=== PATIENT | female | born 1960 | race Caucasian/White ===

== ENCOUNTER → 2023-07-04 14:52 | Outpatient (REF) | payer OTHER, SELFPAY | LOC: HWRAD 14:52 | PROVIDERS: ATTENDING PHYSICIAN Internal Medicine | DX: R10.30 Lower abdominal pain, unspecified (principal); R19.4 Change in bowel habit; R19.5 Other fecal abnormalities | CPT/HCPCS: 74177; Q9967 ==

== ENCOUNTER → 2023-09-15 07:44 | Outpatient (REF) | payer MEDICARE, OTHER, SELFPAY ==
[2023-09-15 10:22] LABS: ALT (SGPT) 15 U/L (0-35); AST (SGOT) 24 U/L (14-36); Blood Urea Nitrogen 15 mg/dl (7-17); Calcium 9.8 mg/dl (8.4-10.2); Carbon Dioxide 29 mmol/L (22-30); Chloride 101 mmol/L (98-107); Glucose 104 mg/dl (70-99); HDL Cholesterol 62 mg/dl; LDL Cholesterol, Calculated 135 mg/dl; Potassium 4.5 mmol/L (3.5-5.1); Sodium 138 mmol/L (135-145); Total Cholesterol 224 mg/dl (50-199); Triglyceride 136 mg/dl (10-149); Very Low Density Lipoprotein 27 mg/dl (0-30); eGFR > 60.00
[2023-09-15 10:40] LABS: Free T3 3.11 pg/ml (2.77-5.27); Free T4 1.21 ng/dl (0.78-2.19)
[2023-09-15 10:54] LABS: TSH 1.54 uIU/ml (0.47-4.68)
[2023-09-15 11:59] LABS: Glycohemoglobin (HgbA1c) 5.6 % (4.0-5.6)
== END ==
LOC: HWLAB 07:44
PROVIDERS: ATTENDING PHYSICIAN Internal Medicine
DX: R73.01 Impaired fasting glucose (principal); I10 Essential (primary) hypertension; E78.5 Hyperlipidemia, unspecified; E03.9 Hypothyroidism, unspecified
CPT/HCPCS: 36415; 80048; 80061; 83036; 84439; 84443; 84450; 84460; 84481

== ENCOUNTER 2023-11-14 13:54 | Observation (INO) | payer MEDICARE, OTHER, SELFPAY ==
[2023-11-14] VITALS (11 sets, daily range): BP systolic 128–165; BP diastolic 84–96; BMI 26.9; BMI 25.1
--- NOTE | 2023-11-14 12:25 | CON.NEURO4 ---
Addendum entered and electronically signed by Edmundo Tilley MD 11/14/23 15:46:
Studies reviewed.
I have personally examined the patient. I reviewed and agree with the PIERCER's Note.
My addenda:
Awake, alert, interactive. No acute distress.
Speech intact.
Follows 2-step requests w/o difficulty. No tremor. Frequent repetition of factual statements
Extra-ocular movements grossly intact.
Facial movements full and symmetric. Hearing intact to normal conversational volume.
Normal UE movements bilaterally.
Neck: full ROM.
Chest: no dyspnea
Heart: no JVD
Ext: (-) Clubbing, (-) Cyanosis, (-) Edema
IMPRESSIONS/RECOMMENDATIONS:
Abrupt onset of amnesia following intercourse
Most likely the patient has experienced transient global amnesia
With a history of migraine and/or depression there is a 12% likelihood of recurrence
Check MRI of brain without contrast to ensure absence of intracranial abnormality producing symptomatology
Check blood work for metabolic abnormalities producing symptoms
No indication this time patient would benefit from aspirin or other antiplatelet therapies
Continue Ezetimibe
D/W patient / nursing
All questions answered.
Will continue to follow pending results.
Original Note:
Documented by User: Mari Queen NP 11/14/23 13:06
Consultation - Neurology 4
-
CONSULTING PHYSICIAN: Edmundo Tilley MD
REFERRING PHYSICIAN: ER/Juan Jose Quintero PA-C
DICTATED BY: MAYRA Gomez
DATE/TIME OF REQUEST: 11/14/23
DATE/TIME OF CONSULTATION: 11/14/23
Reason for Consultation: Confusion
History of Present Illness:
This is a 63-year-old right-handed female who has presented to the hospital as a stroke alert with report of confusion. Patient's reports that the patient was at her baseline this morning. Around 1100 she suddenly became confused, anxious,
and was asking repetitive questions. CT head was obtained on arrival and is negative for any acute abnormalities. Patient denies any headache, dizziness, vision changes, speech/swallow difficulty, numbness, weakness, chest pain, palpitations, and
shortness of breath. She denies any recent illness, travel, and life stressors. She is notably asking the same questions on repeat. NIHSS is 1 for inability to state the month correctly. She is not a candidate for TNK/IAT due to low NIHSS and low
concern for stroke. She has no history of TIA or stroke and she is not taking any blood-thinning medications.
Past Medical History: HTN, HLD, migraines, hypothyroidism, osteopenia, GERD, depression/anxiety, chronic constipation, colitis, lumbar DJD
Surgical History: b/l RTC repair, R shoulder replacement, b/l cataract removal, lumbar spine surgery
Family History: Brother- [employer].
Social History: Occasional alcohol. Denies tobacco and illicit drug use.
Allergies: Codeine.
Home Medications: See below.
Review of Symptoms:
Patient denies any fever, headache, chest pain, shortness of breath, GI or symptoms.
�Per the HPI.�All systems are reviewed negative except above.
Physical Exam:
The patient is afebrile, abdomen is nondistended, breathing is unlabored, skin is warm and dry, no edema.
NIH Stroke Scale:
I performed the NIH stroke scale on the patient on 11/14/23 at 1230. The patient scored 1 points on the NIH stroke scale assessment, which were assigned as follows: See below.
Neurologic Examination:
The patient is awake, alert and oriented to person, place, and year not month. Asking repetitive questions about recent events. Able to state the names of her children and and her home address. She is able to follow commands and answer
questions appropriately. There is no aphasia or dysarthria. On cranial nerve assessment, pupils are 3 mm bilateral, round and reactive to light and accommodation. Visual [place] are full. Extraocular movements are intact. Facial sensations are intact
and bilaterally symmetrical, there is no facial asymmetry. Hearing is intact bilaterally to normal conversation volume. Tongue palate and uvula are midline. Sternocleidomastoid strengths are full bilaterally. Motor strengths are 5/5 bilateral upper
and lower extremities on medical research [place] scale. There is no drift or involuntary movement noted. Deep tendon reflexes are 2+ bilateral upper and lower extremities and Babinski is absent bilaterally. There was no extinction noted on double
simultaneous stimulation. Coordination is intact by finger to nose bilaterally.
Lab Results: See below.
Neuro Imaging:
1. CT Head 11/14/23: No acute intracranial abnormality. Aspects score: 10.
Differentials for the patient's presentation include:
1. Transient global amnesia likely producing patient's confusion.
2. Low concern for stroke but possible.
3. Infectious or metabolic disturbance possibly producing confusion.
4. Unlikely to be migraine aura producing symptoms given absence of headache.
Patient has the following risk factors for their symptoms: HTN, HLD, anxiety, migraines
IV Tenecteplase/IAT candidacy: She is not a candidate for TNK/IAT due to low NIHSS and low concern for stroke.
Recommendations:
-MRI brain noncontrast pending.
-Goal normotension.
-Checking blood work for metabolic disturbances.
-NIHSS and neurological checks per unit guidelines.
-DVT prophylaxis.
-Will follow pending results.
Discussed patient care with: Dr. Tilley, the patient
Vital Signs and Labs
-
Vital Signs and Labs:
Vital Signs
Temp Pulse Resp BP Pulse Ox
98.1 F 89 14 150/94 98
11/14/23 12:21 11/14/23 12:47 11/14/23 12:47 11/14/23 12:32 11/14/23 12:47
Lab Results
11/14/23 12:29
11/14/23 12:29
PT 13.3 Sec (11.4-14.6) 11/14/23 12:29
INR 1.03 11/14/23 12:29
Sodium 135 mmol/L (135-145) 11/14/23 12:29
Potassium 3.9 mmol/L (3.5-5.1) 11/14/23 12:29
BUN 10 mg/dl (7-17) 11/14/23 12:29
Glucose 123 mg/dl (70-99) H 11/14/23 12:29
Calcium 9.8 mg/dl (8.4-10.2) 11/14/23 12:29
Medications
-
Home Medications
�Medication �Instructions �Recorded
levothyroxine 88 mcg tablet 88 mcg PO DAILY Thyroid 12/19/07
(Synthroid)
Lactobacillus rhamnosus GG 10 1 cap PO QPM Gastrointestinal Issue 11/14/23
billion cell capsule (Culturelle)
amlodipine 5 mg tablet 5 mg PO DAILY Blood Pressure 11/14/23
clonazepam 1 mg tablet 1 mg PO HSPRN PRN anxiety 11/14/23
ezetimibe 10 mg tablet 10 mg PO DAILY High Cholesterol 11/14/23
lamotrigine 25 mg tablet 125 mg PO BID Mental Health 11/14/23
multivitamin 1 tab PO QPM Supplement 11/14/23
pantoprazole 40 mg tablet,delayed 40 mg PO DAILY Gastrointestinal 11/14/23
release Issue
sertraline 100 mg tablet 100 mg PO DAILY Mental 11/14/23
Health/Anxiety
trazodone 100 mg tablet 100 mg PO HSPRN PRN insomnia 11/14/23
NIH Stroke Score
Subsequent NIH Scale
Date of Subsequent NIH Scale: 11/14/23
Time of Subsequent NIH Scale: 12:30
NIH Stroke Score
Level of Consciousness: 0 - Alert
LOC Questions: 1-Answers one correctly
Best Horizontal Gaze: 0-Normal
Visual [place]: 0=Normal, no visual loss
Facial Palsy: 0=Normal, symmetrical
Motor - Right Arm: 0=No drift 10 seconds
Motor - Left Arm: 0=No drift 10 seconds
Motor - Right Le-No drift 5 seconds
Motor - Left Le-No drift 5 seconds
Limb Ataxia: 0-Absent
Sensation: 0-Normal
Best Language: 0-No aphasia
Dysarthria: 0-Normal
Extinction and Inattention: 0-No abnormality
Modified [place] (mRS) Score
Modified Tangela Scale (mRS): Moderate disability. Requires some help, able to walk unassisted.
Score: 3

Documented by User: Edmundo Tilley MD 11/14/23 15:42
NIH Stroke Score
Modified [place] (mRS) Score
Score: 3
[2023-11-14 12:41] LABS: % Basophils 0.4 % (0-2); % Eosinophils 1.1 % (0-6); % Immature Granulocytes 0.2 % (0-0.5); % Neutrophils 72.3 % (42.2-75.2); Absolute Eosinophils 0.1 10^3/uL (0-0.7); Absolute Lymphocytes 2.2 10^3/uL (1.2-3.4); Absolute Monocytes 0.5 10^3/uL (0.1-0.6); Absolute Neutrophils 7.5 10^3/uL (1.4-6.5); Hematocrit 36.7 % (37.0-47.0); Mean Corp Hgb Conc. 35.4 g/dL (33.0-37.0); Mean Corpuscular Hgb 30.2 pg (27.0-31.0); Mean Corpuscular Volume 85.3 fL (81.0-99.0); Mean Platelet Volume 8.8 fL (7.4-10.4); Nucleated Red Blood Cells % 0 %; Platelet Count 270 10^3/uL (130-400); Red Cell Dist. Width 12.2 % (11.5-14.5); White Blood Cell Count 10.3 10^3/uL (4.8-10.8)
[2023-11-14 12:50] LABS: Glucose - Point of Care 111 mg/dl (70-99)
--- NOTE | 2023-11-14 12:51 | ED.GENMED ---
History of Present Illness
General
Chief Complaint: CVA/TIA Symptoms
Source: family and ambulance crew
Time Seen by Provider: 11/14/23 12:43
History of Present Illness
History of Present Illness:
63-year-old female with past medical history of hypertension and hypothyroidism, depression presenting to the emergency department for evaluation after patient was found at home with repetitive speech, seemed generally confused and unable to recall
any events from recent memory. A prehospital stroke alert had been called. History was difficult to obtain from the patient as she was unable to remember that an ambulance that even picked her up from her home. She currently has no
complaints/concerns. There was no reported fevers or infectious symptoms. Patient is unsure of medications she takes or changes to medications.
Past History
Past History
ED Past Medical History: HTN and Hypothyroidism
ED Past Surgical History: Other (Lumbar fusion)
Social History
Tobacco: Non-smoker
Alcohol: Occasional
Drug: None
Personal:
Living: with family
Employment: Employed
Review of Systems
Review of Systems
All Other Systems: ROS reviewed and negative except as documented in HPI and ROS
Phy Exam
Physical Exam
Physical Exam:
GENERAL: Alert , in no apparent distress, continuously repeats questions, somewhat tearful
EYE: conjunctiva clear
NECK: Supple
ENT: o/p clr, mmm.
CARDIAC: Regular rate and rhythm
LUNGS: Clear breath sounds bilaterally, no acute respiratory distress, no wheezes/rales/rhonchi
NEUROLOGICAL: Alert and oriented to self but not place or time
SKIN: Warm and dry, skin intact.
MUSCULOSKELETAL: well perfused.
PSYCH: Normal and appropriate interaction.
Scores
Heart Failure Risk
Heart Failure Risk Score: Not Applicable
Heart Score for Chest Pain Patients
STEMI patient?: Not applicable
Withdrawal Assessment of Alcohol
Withdrawal Assessment Completed?: Not applicable
Course
Orders/Labs/Results
Orders:
Orders
11/14/23 12:23
CT Head W/o Cont STROKE ALERT Urgent
Comment:
Reason For Exam: confusion
11/14/23 12:29
CBC/With Diff [Complete Blood Count/With Diff] Urgent
CMP [Comprehensive Metabolic Panel] Urgent
Cardiovascular Evaluation Urgent
Comment: LIPID PROFILE ADDED ON BY FLOOR 1:30PM 11-14-23
Ferritin Urgent
Comment: ADD ON
Folate Urgent
Comment: ADD ON
Glycohemoglobin (HgbA1c) Urgent
PT/INR [Prothrombin Time] Urgent
TSH Reflex To Free T4 Urgent
Comment: ADD ON
Vitamin B12 Urgent
Comment: ADD ON
11/14/23 12:32
EKG [Electrocardiogram (*1)] Urgent
Reason for Study: TIA/Stroke
EKG- Treatment ONCE
11/14/23 12:53
Add On- LAB Routine
Tests Added?: folate, ferritin, TSH reflex, B12, hbA1c
11/14/23 13:04
MR Brain Without Contrast Routine
Comment:
Reason For Exam: acute onset confusion
Recent pill cam endoscopy?: No
11/14/23 13:31
Add On- LAB Urgent
Tests Added?: lipid profile
Admit/Transfer Patient As Directed
Co-Sign Provider:
Level of Care: Observation services
Assign to:: Telemetry
Physician / Group: tanvi yen
Diagnosis: Transient global amnesia
Reason for Telemetry: CVA/TIA
Date to Stop Telemetry: 11/17/23
Time to Stop Telemetry: 11:00
Reason for Hospitalization: Transient global amnesia
NEUROLOGY CONSULT Routine
Consulting Provider: Edmundo Tilley
Was physician already notified: Yes
Reason for consult: amnesia
11/14/23 13:32
Code Status As Directed
Resuscitation Status: Full Code
11/14/23 13:35
PRN Pain Medication Management As Directed
May give lesser potent ordered pain med per pt: Yes
preference::
Protocol:: Medication orders for pain may be administered in a
manner that supports deferring to patient preference
when the pt is:
- Requesting an ordered lesser potent pain medication.
Least to most potent pain medications are defined
as: acetaminophen < NSAID < tramadol < opioids
(morphine, oxycodone, hydromorphone).
- Requesting a lesser dose of the same medication IF
ORDERED.
- Requesting a less intrusive route of administration
if both routes are prescribed by the provider (PO <
IV).
11/14/23 13:36
Add On- LAB Urgent
Tests Added?: hgba1c
11/17/23 11:00
DC Protocol for Telemetry ONCE
Abnormal Lab Results
11/14/23 11/14/23
12:29 12:49
Hct 36.7 L %
(37.0-47.0)
Absolute Neuts (auto) 7.5 H 10^3/uL
(1.4-6.5)
Glucose 123 H mg/dl
(70-99)
POC Glucose 111 H mg/dl
(70-99)
11/14/23 12:29
11/14/23 12:29
Vital Signs
Initial and Last Documented VS:
Initial Vital Signs
Temp Pulse Resp BP Pulse Ox
98.1 F 98 20 154/93 98
11/14/23 12:21 11/14/23 12:21 11/14/23 12:21 11/14/23 12:21 11/14/23 12:21
Last Documented Vital Signs
Temp Pulse Resp BP Pulse Ox
98.1 F 85 16 160/94 98
11/14/23 12:21 11/14/23 13:15 11/14/23 13:15 11/14/23 13:15 11/14/23 13:15
Church Administrator consulted with Physician
Church Administrator consulted with physician?: Yes
Name of Physician Consulted: Danis
MDM/Problems Addressed
Differential Diagnosis Includes:
Transient global amnesia, seizure, CVA, hypertensive encephalopathy, less concern for infectious etiology
MDM/Problems Addressed:
63-year-old female presenting to the emergency department for evaluation of repetitive speech and short-term memory loss. Patient continuously repeating that her son works at this facility but is unable to recall any names as well as having
difficulty with dates. Due to the continuously repetitive questioning suspicion for TGA was most likely. Patient was brought to CT scan immediately due to the prehospital stroke alert being called and neurology is at the bedside. Neurology
recommending monitoring and MRI for further evaluation. Plan for hospitalist admission.
Chronic conditions affecting care: HTN
*Radiology
Radiology exam reviewed: radiology read reviewed
*Pulse Oximetry
Patient hypoxic: no
*EKG
Interpreted by ED Provider?: Yes
Comparison EKG: changes noted
Heart Rate: 91
Rate: normal
Rhythm: sinus
[place]: left axis deviation
Ischemia: no ischemia
*Critical Care Note
Total Time (30-74mins, 75-104mins- exclusive of procedures): Not Applicable
Patient Management
Discussion with other providers: Hospitalist and Public Health Aide
Escalation/DeEscalation of care consider admission/obs:
Patient CT unremarkable. Hospitalist team to admit for continued eval and treatment
ED Attending Note
-
Portions of this chart may have been created with voice recognition software.� Occasional wrong word or��sound alike� substitutions may have occurred due to the inherent limitations of voice recognition software.
Discharge Plan
Departure
Patient Disposition: Admit
Date of Disposition: 11/14/23
Time of Disposition: 12:51
Presentation/result/management discussed w/ accepting MD/DO: Hospitalist
Discharge Problem:
Amnesia
Prescriptions:
No Action
levothyroxine [Synthroid] 88 MCG tablet
88 mcg PO DAILY
sertraline 100 mg tablet
100 mg PO DAILY
clonazepam 1 mg tablet
1 mg PO HSPRN PRN (Reason: anxiety)
amlodipine 5 mg Tablet
5 mg PO DAILY
lamotrigine 25 mg tablet
125 mg PO BID
trazodone 100 mg tablet
100 mg PO HSPRN PRN (Reason: insomnia)
ezetimibe 10 mg tablet
10 mg PO DAILY
multivitamin Tablet
1 tab PO QPM
Culturelle 10 billion cell Capsule
1 cap PO QPM
pantoprazole 40 mg Tablet,Delayed Release (Dr/Ec)
40 mg PO DAILY
Referrals:
UNKNOWN - PT NOT,INTERVIEWE [Family Provider] -
Interventions
Interventions:
*Risk Screen - Suicide Last Done: 11/14/23 12:52
*General Assessment Last Done: 11/14/23 12:52
*Neglect/Abuse Screening Last Done: 11/14/23 12:52
ED- Fall Risk Assessment Last Done: 11/14/23 12:35
*ED COVID-19 Vaccine History Last Done: 11/14/23 12:52
ED- Pulmonary Assessment Last Done: 11/14/23 12:35
ED- Neurological Assessment Last Done: 11/14/23 12:35
ED- Cardiac Assessment Last Done: 11/14/23 12:35
ED Swallowing Screen Last Done: 11/14/23 12:58
Discharge Date and Time
Print Language: LATVIAN
[2023-11-14 12:53] LABS: INR 1.03; PT 13.3 Sec (11.4-14.6)
[2023-11-14 12:57] LABS: ALT (SGPT) 14 U/L (0-35); AST (SGOT) 22 U/L (14-36); Albumin 4.9 g/dl (3.5-5.0); Alkaline Phosphatase 92 U/L (38-126); Blood Urea Nitrogen 10 mg/dl (7-17); Calcium 9.8 mg/dl (8.4-10.2); Carbon Dioxide 25 mmol/L (22-30); Chloride 100 mmol/L (98-107); Estimated Creatinine Clearance 65 ml/min; Glucose 123 mg/dl (70-99); Potassium 3.9 mmol/L (3.5-5.1); Sodium 135 mmol/L (135-145); Total Bilirubin 0.6 mg/dl (0.2-1.3); Total Protein 7.6 g/dl (6.3-8.2); eGFR > 60.00
--- NOTE | 2023-11-14 13:04 | HPS.HSE ---
Addendum entered and electronically signed by Alexander Olson MD 11/14/23 14:43:
63-year-old female with a past medical history of hypertension, chronic headaches, anxiety/depression, and hypothyroidism presents with acute onset of repetitive speech, confusion, and difficulty recalling recent events. Patient's states
that the symptoms occurred shortly after having intercourse this morning.
Appreciate neurology input, who suspects transient global amnesia.
Will place in observation for brain MRI, check hemoglobin A1c, check lipid panel, assess risk factors for cerebrovascular disease.
I have personally seen and examined the patient, and agree with the plan of care as documented by MAYRA Rosa
Advance care planning discussed, patient is a full code.
All other issues as outlined by the advanced care practitioner.
Original Note:
Family Physician
-
Family Physician: INTERVIEWE UNKNOWN - PT NOT
Chief Complaint
-
Acute amnesia
History of Present Illness
63-year-old female who came from EMS at home due to repetitive speech, confusion with inability to recall recent events. Her is at bedside and states approximately 20 minutes after having SEX this morning she became confused. She did not
recognize the picture on her iPhone. She was asking repetitive questions. She is currently oriented to [place], year, month but not today's events. She does keep asking repetitive questions of how she got here what happened this morning. She
did not recall that she had skin biopsy to her right shoulder and right arm yesterday although she does remember meeting up with a friend. She reports history of chronic headaches although denies current headache today. She denies blurred vision,
sore throat, fever, chills, chest pain, palpitations, shortness of breath, cough, abdominal pain, nausea, vomiting, diarrhea, urinary symptoms
She is past medical history of HTN , hypothyroidism,anxiety, GERD, insomnia, migraines, back pain/lumbar fusion, MRSA right thigh.
Medical History
Past Medical History
Past Medical History: Reports Other
Additional Past Medical History:
HTN ,
hypothyroidism
anxiety
GERD
insomnia
migraines
back pain/lumbar fusion
MRSA right thigh.
Past Surgical History: Reports Other
Additional Past Surgical History:
Spinal fusion 01/08/2008
Social History
Tobacco: Non-smoker
Alcohol: Occasional
Drug: None
Personal:
Living: With Family
Employment: Employed
Family History
Family History: Other (Mother COPD, history CVA HTN age 70s, father age 64 [place], sister in September from unknown type of cancer, brother [place] age 64 also history of HIV)
Allergies / Home Medications
Allergies reflects when Allergies were last updated in [employer].
Home Medications with original date entered in [facility]
Allergy/Medication List:
Allergies
Allergy/AdvReac Type Severity Reaction Status Date / Time
codeine [Codeine] Allergy Unknown Unknown; Verified 11/14/23 12:26
upsets
stomache
Home Medications
levothyroxine 88 mcg tablet (Synthroid) 88 mcg PO DAILY Thyroid 12/19/07
Lactobacillus rhamnosus GG 10 billion cell capsule (Culturelle) 1 cap PO QPM Gastrointestinal Issue 11/14/23
amlodipine 5 mg tablet 5 mg PO DAILY Blood Pressure 11/14/23
clonazepam 1 mg tablet 1 mg PO HSPRN PRN anxiety 11/14/23
ezetimibe 10 mg tablet 10 mg PO DAILY High Cholesterol 11/14/23
lamotrigine 25 mg tablet 125 mg PO BID Mental Health 11/14/23
multivitamin 1 tab PO QPM Supplement 11/14/23
pantoprazole 40 mg tablet,delayed release 40 mg PO DAILY Gastrointestinal Issue 11/14/23
sertraline 100 mg tablet 100 mg PO DAILY Mental Health/Anxiety 11/14/23
trazodone 100 mg tablet 100 mg PO HSPRN PRN insomnia 11/14/23
Review of Systems
-
History Source: Patient and Family ( and son at bedside)
A 12 point ROS was completed and negative except as noted: Yes
Constitutional: Reports Other (amnesia); Denies Fever, Fatigue or Chills
EENT: Denies Sore Throat or Runny Nose
Respiratory: Denies Cough or Trouble Breathing
Cardiac: Denies Chest Pain, Diaphoresis, Palpitations or Syncope
Abdomen/GI: Denies Abdominal Pain, Nausea, Vomiting, Diarrhea, Constipated, Bloody Stools or Black Stools
: Denies Dysuria, Frequency, Flank Pain, Incontinence, Difficulty Voiding or Urgency
Musculoskeletal: Denies Joint Pain or Edema
Skin: Reports Other (Skin biopsy sites right shoulder right upper arm from yesterday 11/13/2023); Denies Itching or Rash
Neurological: Denies Dizzy, Headache or Weakness
Endocrine: Reports No Symptoms
Hematologic/Lymphatic: Reports No Symptoms
Psych: Reports Calm
Physical Exam
Vital Signs
Vital Signs
Temp Pulse Resp BP Pulse Ox
98.1 F 89 14 150/94 98
11/14/23 12:21 11/14/23 12:47 11/14/23 12:47 11/14/23 12:32 11/14/23 12:47
Physical Exam
General: Comfortable, Conversant and Other (Asking repetitive questions is oriented although to name, place, year but not earlier events today summa past medical history)
HEENT: NormoCephalic, Anicteric, Moist mucous membranes, PERRLA, [place] Conjunctivae and No Ptosis
Respiratory: Clear; No Wheezes, Rales or Rhonchi
Cardiac: S1/S2 and Regular Rhythm; No Murmur, Rub, Gallop or Peripheral Edema
Breast: Deferred by me
GI: Soft, Non Tender, Non Distended and No Hepatosplenomegaly
Rectal: Deferred by Provider
Genito-urinary: Deferred by me
Musculoskeletal: No Clubbing, No Cyanosis and No Edema
Skin: Warm and Dry; No Rash
Neuro: Awake, Alert, Oriented (Asking repetitive questions is oriented although to name, place, year but not earlier events today summa past medical history), Cranial Nerves Intact and No Sensory Deficits; No Slurred Speech, Facial Droop, Tremors or
Sedated
Psych: Calm
Laboratory Results
-
11/14/23 12:
11/14/23 12:29
Laboratory Results
Total Bilirubin 0.6 mg/dl (0.2-1.3) 11/14/23 12:
AST 22 U/L (14-36) 11/14/23 12:
ALT 14 U/L (0-35) 11/14/23 12:
Alkaline Phosphatase 92 U/L (38-126) 11/14/23 12:29
Impression/Plan
-
Impression/plan:
Observation telemetry
#Transient global amnesia s/p [place]
-Consult neurology
-MRI brain
-Check lipid profile, HgbA1c
-Neurochecks every 4 hours
-PT/OT/case management consult
CT head: No acute intracranial abnormality
# S/p Skin biopsy right shoulder, right upper arm 11/13/2023
#HTN�benign
BP 150/94
Continue amlodipine 5 mg daily
#HLD
check lipid profile
-Continue Zetia 10 mg daily
#Hypothyroidism
-Check TSH with free T4 reflex
-Continue Synthroid 88 mcg daily
#Anxiety
-Continue Lamictal 125 mg p.o. twice daily, Zoloft 100 mg daily
-Continue clonazepam 1 mg p.o. at bedtime as needed
#Insomnia
-Continue trazodone 100 mg at bedtime as needed
Other PMH:
Migraine headaches
Back pain-patient's status post lumbar fusion
MRSA right thigh
DVT prophylaxis
SCDs
Full code
[2023-11-14 13:47] LABS: HDL Cholesterol 64 mg/dl; LDL Cholesterol, Calculated 153 mg/dl; Total Cholesterol 245 mg/dl (50-199); Triglyceride 142 mg/dl (10-149); Very Low Density Lipoprotein 28 mg/dl (0-30)
[2023-11-14 13:57] LABS: Glycohemoglobin (HgbA1c) 5.5 % (4.0-5.6)
[2023-11-14] MEDS: TYLENOL 650 MG PO ×2 (15:37→20:26)
[2023-11-14 17:39] LABS: TSH Reflex To Free T4 1.96 uIU/ml (0.47-4.68)
[2023-11-14 17:43] LABS: Ferritin 70.1 ng/ml (11.1-264.0)
[2023-11-14 18:15] LABS: Folate > 20.0 ng/ml (2.76-20); Vitamin B12 > 1000 pg/ml (239-931)
[2023-11-14] MEDS: VISBIOME 1 CAP PO (18:31)
[2023-11-14] MEDS: THERAGRAN 1 TABLET PO (18:31)
[2023-11-14] MEDS: LAMICTAL 125 MG PO (20:26)
[2023-11-14] MEDS: DESYREL 100 MG PO (22:24)
[2023-11-15 03:28] VITALS: BP 121/65
--- NOTE | 2023-11-15 06:13 | W.PN.NEURO.1 ---
Today's Communication / Plan
-
-No further workup or monitoring recommended
-No indication for chronic antiplatelet therapies
-No barriers to discharge from my POV
-Neurology follow up in 1 month outpatient
Neuro Assessment/Plan
Assessment
Classic case of transient global amnesia based on the very characteristic history of short-term memory loss and repetitive questions which is resolved
Generally MRI is negative in these cases
MRI obtained here in the hospital was ruled out ischemic stroke which can occasionally manifest with such symptoms
Subjective/Objective
Subjective Data
Date of Service: November 15, 2023
No acute events, no complaints this morning, feeling better but doesnt remember much of yesterday
Objective Data
Vital Signs
Temp Pulse Resp BP Pulse Ox
97.9 F 73 18 121/65 96
11/15/23 03:28 11/15/23 03:28 11/15/23 03:28 11/15/23 03:28 11/15/23 03:28
Lab Results
11/14/23 12:29
11/14/23 12:29
PT 13.3 Sec (11.4-14.6) 11/14/23 12:29
INR 1.03 11/14/23 12:29
Sodium 135 mmol/L (135-145) 11/14/23 12:29
Potassium 3.9 mmol/L (3.5-5.1) 11/14/23 12:29
BUN 10 mg/dl (7-17) 11/14/23 12:29
Glucose 123 mg/dl (70-99) H 11/14/23 12:29
Calcium 9.8 mg/dl (8.4-10.2) 11/14/23 12:29
LDL Cholesterol, Calc 153 mg/dl 11/14/23 12:29
Vitamin B12 > 1000 pg/ml (239-931) H 11/14/23 12:29
Patient Allergies
codeine [Codeine] Allergy (Unknown, Verified 11/14/23 12:26)
Unknown; upsets stomache
Review of Systems
-
History Source: Patient
All other systems: Reviewed and negative
Constitutional: No Symptoms
EENT: No Symptoms Reported
Respiratory: No Symptoms
Cardiac: No Symptoms
Abdomen/GI: No Symptoms
Genitourinary: No Symptoms
Musculoskeletal: No Symptoms
Skin: No Symptoms
Neuro: See existing Neuro Note
Endocrine: No Symptoms
Hematologic / Lymphatic: No Symptoms
Allergy / Immunology: No Symptoms
Physical Exam
-
General: Comfortable
Eyes: No Ptosis
HEENT: Normocephalic
Neck: No Bruits Bilaterally
Respiratory: Clear to Auscultation
Cardiac: Regular Rhythm
GI: Normal Bowel Sounds
Skin: Unremarkable
Extremities: No Clubbing
Psych: Unremarkable
Extended Neurological Exam
Mood & Affect: Mood Unremarkable and Affect Unremarkable
Attention Span & Concentration: Awake, Alert, Interactive and Other (Good insight, obeys complex commands, no confusion, conversation appropriate and pleasant)
Memory: Able to Recall and Other (Recall 5/5 after 4 minutes)
Tremor: Hand Tremor Absent
Involuntary Movement: None
Speech: Quality Unremarkable and Quantity Unremarkable; Negative Expressive Aphasia, Receptive Aphasia or Dysarthric
Cranial Nerve II: Left Eye: Pupillary Reactivity Unremarkable and Pupillary Size Unremarkable
Cranial Nerve II: Right Eye: Pupillary Reactivity Unremarkable and Pupillary Size Unremarkable
Cranial Nerves III, IV, : Extraocular Movement: Extraocular Movement Full in all Directions
Cranial Nerve V: Facial Sensation: Intact to Pin Prick
Cranial Nerve VII: Facial Symmetry: Normal Facial Symmetry
Cranial Nerve VIII: Hearing: Unremarkable Hearing to Normal Conversational Volume
Cranial Nerves IX, X: Palate Movement: Palate Elevation Symmetric
Muscle Strength, Overall: Full Throughout
Muscle Bulk & Tone: Bulk Unremarkable
Pronator Drift: No Drift in Upper Extremities
Deep Tendon Reflexes: Trace Throughout
Touch Sensation: Unremarkable
Babinski Sign: Absent Bilaterally
Data Reviewed
-
CT Head: Report Reviewed and Image Reviewed
MRI Head: Report Reviewed and Image Reviewed
[2023-11-15] MEDS: SYNTHROID 88 MCG PO (06:25)
[2023-11-15] MEDS: TYLENOL 650 MG PO (06:30)
[2023-11-15 07:15] VITALS: BP 134/88
[2023-11-15] MEDS: NORVASC 5 MG PO (08:28)
[2023-11-15] MEDS: ZOLOFT 100 MG PO (08:28)
[2023-11-15] MEDS: PROTONIX 40 MG PO (08:28)
[2023-11-15] MEDS: ZETIA 10 MG PO (08:28)
[2023-11-15] MEDS: LAMICTAL 125 MG PO (08:28)
--- NOTE | 2023-11-15 09:06 | W.PN.HOSP.TC ---
Today's Communication/Plan
-
Cleared by neurology for discharge today
Assessment / Plan
Assessment / Plan
HPI: 63-year-old female with a past medical history of hypertension, chronic headaches, anxiety/depression, and hypothyroidism presents with acute onset of repetitive speech, confusion, and difficulty recalling recent events. Patient's
states that the symptoms occurred shortly after having intercourse this morning.
#Transient global amnesia s/p [place]
Appreciate neurology input, brain MRI unremarkable
Amnesia resolved, patient is back to normal mentation villanueva
Cleared by neurology for discharge
# S/p Skin biopsy right shoulder, right upper arm 11/13/2023
#HTN�benign
Continue amlodipine 5 mg daily
#HLD
-Continue Zetia 10 mg daily
#Hypothyroidism
-Check TSH with free T4 reflex
-Continue Synthroid 88 mcg daily
#Anxiety
-Continue Lamictal 125 mg p.o. twice daily, Zoloft 100 mg daily
-Continue clonazepam 1 mg p.o. at bedtime as needed
#Insomnia
-Continue trazodone 100 mg at bedtime as needed
Other PMH:
Migraine headaches
Back pain-patient's status post lumbar fusion
MRSA right thigh
DVT prophylaxis�SCDs
Full code
Updated at bedside 11/14
Physical Exam
General: No acute distress
HEENT: Normocephalic, Atraumatic, EOMI, MMM
Respiratory: Clear to Auscultation bilaterally
Cardiac: Normal S1/S2, Regular Rate and Rhythm
GI: Soft, Nontender, Nondistended, Normal Bowel Sounds
Extremities: No Clubbing, Cyanosis, or Edema
Neuro: Nonfocal/Grossly Intact
Psych: Calm, Cooperative
Derm: No Visible lesions
Anticipated Discharge: Today
Subjective/Interval History
-
Date of Service: November 15, 2023
Patient does not remember seeing me yesterday. She does not recall being in the emergency room, the ambulance ride. She is back to normal today, and can recall the events from the day prior. No fever, no vomiting.
Objective Data
-
Vital Signs:
Vital Signs
Temp Pulse Resp BP Pulse Ox
98.3 F 66 17 134/88 99
11/15/23 07:15 11/15/23 07:15 11/15/23 07:15 11/15/23 07:15 11/15/23 07:15
I&O
11/14/23 11/15/23 11/16/23
06:59 06:59 06:59
Intake Total 240 / 240
Balance 240 / 240
--- NOTE | 2023-11-15 11:16 | W.DCSUMMARY ---
Discharge Summary
Discharge Data
Date of Admission: 11/14/23
Date of Discharge: 11/15/23
-
Pending Results: No
Hospital Course
Discharge diagnosis:
Transient global amnesia
Recent skin biopsy of the right shoulder 11/13/2023
Hyperlipidemia
Benign essential hypertension
Anxiety/depression
Chronic migraine headaches
Hypothyroidism
Insomnia
Consults: Neurology
Brain MRI:
1. No MRI evidence for acute infarct or transient global amnesia.
2. Mild white matter leukoaraiosis in the frontal and parietal lobes.
Hospital course:
63-year-old female with a past medical history of chronic migraine headaches, hypertension, hyperlipidemia, anxiety/depression, and hypothyroidism was admitted for acute onset of amnesia 20 minutes after having sexual intercourse. Patient was seen
in conjunction with neurology, who suspects patient has transient global amnesia. Brain MRI was unremarkable, results as above. By the following day, patient's amnesia resolved. She does have hyperlipidemia, and can continue her Zetia. Patient is
medically stable and cleared by neurology for discharge. She has been instructed to follow-up with her primary care doctor in 1 week.
Disposition: Home self-care
Discharge planning: Required 32 minutes
Discharge Plan
-
Patient Disposition: Home (Routine Discharge)
Discharge Diagnosis/Procedures: Transient global amnesia
Condition: Good
Diet: Low Fat and Low Cholesterol
Activity: As tolerated
Driving Restrictions: As prior to admission
Activity Restrictions/Additional Instructions:
Please follow-up with your primary care doctor in 1 week.
Referrals:
UNKNOWN - PT NOT,INTERVIEWE [Family Provider] -
Prescriptions:
Continued
levothyroxine [Synthroid] 88 MCG tablet
88 mcg PO DAILY
sertraline 100 mg tablet
100 mg PO DAILY
clonazepam 1 mg tablet
1 mg PO HSPRN PRN (Reason: anxiety)
amlodipine 5 mg Tablet
5 mg PO DAILY
lamotrigine 25 mg tablet
125 mg PO BID
trazodone 100 mg tablet
100 mg PO HSPRN PRN (Reason: insomnia)
ezetimibe 10 mg tablet
10 mg PO DAILY
multivitamin Tablet
1 tab PO QPM
Culturelle 10 billion cell Capsule
1 cap PO QPM
pantoprazole 40 mg Tablet,Delayed Release (Dr/Ec)
40 mg PO DAILY
Discharge Orders:
Discharge Patient (As Directed); Ordered 11/15/23
Ordered By: Alexander Olson
Discharge Date and Time
Discharge Date/Time: 11/15/23 11:52
Print Language: FAROESE
[2023-11-15 11:27] VITALS: BP 125/80
--- NOTE | 2023-11-15 11:28 | CM ---
Addendum entered by Addis Husain 11/15/23 12:07:
[facility]
Original Note:
IA completed. Observation & [place] form signed and placed in chart.
Patient lives at home with her in a 2 story home.
1 step into home, 12 steps to 2nd floor.
PLOF: Independent, drives.
Dr. Olson seen patient & discharged.
Discharge to home, no needs.
PLAN: Discharge to home. No needs.
to transport home.
== END 2023-11-15 11:52 | disposition home or self-care (01) ==
LOC: 4 WEST ACU 13:54
PROVIDERS: Emergency Medicine; ADMITTING PHYSICIAN Family Medicine; CONSULT PHYSICIAN Psychiatry & Neurology Neurology; EMERGENCY PHYSICIAN Emergency Medicine
DX: G45.4 Transient global amnesia (principal); I10 Essential (primary) hypertension; F32.A Depression, unspecified; F41.9 Anxiety disorder, unspecified; E03.9 Hypothyroidism, unspecified; K21.9 Gastro-esophageal reflux disease without esophagitis; E78.5 Hyperlipidemia, unspecified; G47.00 Insomnia, unspecified; G43.909 Migraine, unspecified, not intractable, without status migrainosus; Z79.899 Other long term (current) drug therapy; Z82.49 Family history of ischemic heart disease and other diseases of the circulatory system; Z82.3 Family history of stroke; Z86.14 Personal history of Methicillin resistant Staphylococcus aureus infection; Z98.1 Arthrodesis status
CPT/HCPCS: 70450; 70551; 80053; 80061; 82607; 82728; 82746; 82962; 83036; 84443; 85025; 85610; 87070; 93005; 97165; 99285; G0378

== ENCOUNTER → 2023-11-28 10:19 | Outpatient (REF) | payer MEDICARE, OTHER, SELFPAY | LOC: HWRAD 10:19 | PROVIDERS: ATTENDING PHYSICIAN Internal Medicine | DX: Z98.1 Arthrodesis status (principal); M54.50 Low back pain, unspecified | CPT/HCPCS: 72110; 72202 ==

== ENCOUNTER → 2024-02-08 09:00 | Outpatient (REF) | payer MEDICARE, OTHER, SELFPAY ==
[2024-02-08 12:22] LABS: ALT (SGPT) 14 U/L (0-35); AST (SGOT) 21 U/L (14-36); Albumin 4.7 g/dl (3.5-5.0); Alkaline Phosphatase 67 U/L (38-126); Blood Urea Nitrogen 10 mg/dl (7-17); Calcium 9.6 mg/dl (8.4-10.2); Carbon Dioxide 25 mmol/L (22-30); Chloride 102 mmol/L (98-107); Glucose 99 mg/dl (70-99); HDL Cholesterol 53 mg/dl; LDL Cholesterol, Calculated 131 mg/dl; Potassium 4.3 mmol/L (3.5-5.1); Sodium 140 mmol/L (135-145); Total Bilirubin 0.4 mg/dl (0.2-1.3); Total Cholesterol 222 mg/dl (50-199); Total Protein 7.3 g/dl (6.3-8.2); Triglyceride 191 mg/dl (10-149); Very Low Density Lipoprotein 38 mg/dl (0-30); eGFR > 60.00
[2024-02-08 13:17] LABS: Glycohemoglobin (HgbA1c) 5.4 % (4.0-5.6)
== END ==
LOC: HWRAD 09:00
PROVIDERS: ATTENDING PHYSICIAN Internal Medicine
DX: M81.0 Age-related osteoporosis without current pathological fracture (principal); Z12.31 Encounter for screening mammogram for malignant neoplasm of breast; E78.5 Hyperlipidemia, unspecified; R73.01 Impaired fasting glucose
CPT/HCPCS: 36415; 77063; 77067; 80053; 80061; 83036

== ENCOUNTER → 2024-07-18 07:36 | Outpatient (REF) | payer MEDICARE, OTHER, SELFPAY ==
[2024-07-18 10:22] LABS: ALT (SGPT) 17 U/L (0-35); AST (SGOT) 24 U/L (14-36); Albumin 5.1 g/dl (3.5-5.0); Alkaline Phosphatase 89 U/L (38-126); Blood Urea Nitrogen 16 mg/dl (7-17); Calcium 10.1 mg/dl (8.4-10.2); Carbon Dioxide 29 mmol/L (22-30); Chloride 101 mmol/L (98-107); Glucose 104 mg/dl (70-99); HDL Cholesterol 61 mg/dl; LDL Cholesterol, Calculated 145 mg/dl; Potassium 4.3 mmol/L (3.5-5.1); Sodium 141 mmol/L (135-145); Total Bilirubin 0.6 mg/dl (0.2-1.3); Total Cholesterol 240 mg/dl (50-199); Total Protein 7.8 g/dl (6.3-8.2); Triglyceride 173 mg/dl (10-149); Very Low Density Lipoprotein 34 mg/dl (0-30); eGFR > 60.00
[2024-07-18 10:43] LABS: TSH 1.05 uIU/ml (0.47-4.68)
[2024-07-18 12:37] LABS: Rubeola (Measles) IgG Positive
== END ==
LOC: HWLAB 07:36
PROVIDERS: ATTENDING PHYSICIAN Internal Medicine
DX: E78.2 Mixed hyperlipidemia (principal); I10 Essential (primary) hypertension; Z01.84 Encounter for antibody response examination; E03.9 Hypothyroidism, unspecified
CPT/HCPCS: 36415; 80053; 80061; 84439; 84443; 84481; 86765

== ENCOUNTER → 2024-10-17 11:28 | Outpatient (REF) | payer MEDICARE, OTHER, SELFPAY ==
[2024-10-17 15:57] LABS: Hematocrit 39.8 % (37.0-47.0); Hemoglobin 13.0 g/dL (12.0-16.0); Mean Corp Hgb Conc. 32.7 g/dL (33.0-37.0); Mean Corpuscular Volume 90.9 fL (81.0-99.0); Nucleated Red Blood Cells % 0 %; Platelet Count 328 10^3/uL (130-400); Red Cell Dist. Width 12.5 % (11.5-14.5)
[2024-10-17 16:07] LABS: C-Reactive Protein < 5.00 mg/L (0.0-10.00)
[2024-10-20 00:20] LABS: CCP Antibody IgG/IgA 6 Units (0-19)
== END ==
LOC: HWLAB 11:28
PROVIDERS: ATTENDING PHYSICIAN Internal Medicine
DX: M25.60 Stiffness of unspecified joint, not elsewhere classified (principal)
CPT/HCPCS: 36415; 85025; 85652; 86140; 86200; 86430

== ENCOUNTER → 2025-01-14 06:58 | Outpatient (REF) | payer MEDICARE, OTHER, SELFPAY ==
[2025-01-14 09:48] LABS: ALT (SGPT) 12 U/L (0-35); AST (SGOT) 18 U/L (14-36); Blood Urea Nitrogen 16 mg/dl (7-17); Calcium 9.5 mg/dl (8.4-10.2); Carbon Dioxide 29 mmol/L (22-30); Chloride 103 mmol/L (98-107); Glucose 99 mg/dl (70-99); HDL Cholesterol 52 mg/dl; LDL Cholesterol, Calculated 123 mg/dl; Potassium 4.2 mmol/L (3.5-5.1); Sodium 137 mmol/L (135-145); Very Low Density Lipoprotein 26 mg/dl (0-30); eGFR > 60.00
[2025-01-14 10:04] LABS: Free T3 3.56 pg/ml (2.77-5.27)
[2025-01-14 10:17] LABS: TSH 1.71 uIU/ml (0.47-4.68)
[2025-01-14 10:19] LABS: Glycohemoglobin (HgbA1c) 5.3 % (4.0-5.6)
[2025-01-16 10:50] LABS: Rheumatoid Agglutinin Less Than 10 IU (<10 IU)
== END ==
LOC: HWLAB 06:58
PROVIDERS: ATTENDING PHYSICIAN Internal Medicine
DX: R73.01 Impaired fasting glucose (principal); I10 Essential (primary) hypertension; E78.2 Mixed hyperlipidemia; E03.9 Hypothyroidism, unspecified; M25.60 Stiffness of unspecified joint, not elsewhere classified
CPT/HCPCS: 36415; 80048; 80061; 83036; 84439; 84443; 84450; 84460; 84481; 86430

== ENCOUNTER → 2025-02-10 09:13 | Outpatient (REF) | payer MEDICARE, OTHER, SELFPAY | LOC: HWWDC 09:13 | PROVIDERS: ATTENDING PHYSICIAN Internal Medicine | DX: Z12.31 Encounter for screening mammogram for malignant neoplasm of breast (principal) | CPT/HCPCS: 77063; 77067 ==